=== PATIENT | female | born 1990 | race African-American/Black ===

== ENCOUNTER 2019-04-24 20:18 | Emergency (ER) | payer SELFPAY ==
[~2019-04-24] VITALS: Ht 165.1 cm; Wt 100.0 kg
[~2019-04-24 20:18] MED LIST: ASPIRIN; TYLENOL
[2019-04-24 21:08] VITALS: BP 122/67
== END 2019-04-25 03:10 | disposition left against medical advice (07) ==
LOC: ER 20:18
DX: Z53.21 Procedure and treatment not carried out due to patient leaving prior to being seen by health care provider (principal)